=== PATIENT | female | born 1955 | race Caucasian/White ===

== ENCOUNTER → 2018-03-09 | Outpatient (CLI) | payer OTHER | END | disposition home or self-care (01) | LOC: RAH 14:35 | PROVIDERS: ATTEND Internal Medicine | DX: G31.9 Degenerative disease of nervous system, unspecified (principal); H53.9 Unspecified visual disturbance | CPT/HCPCS: 70551 ==

== ENCOUNTER → 2022-03-20 | Outpatient (CLI) | payer MEDICARE, OTHER | END | disposition home or self-care (01) | LOC: RAH 14:48 | PROVIDERS: ATTEND Student in an Organized Health Care Education/Training Program | DX: S83.231A Complex tear of medial meniscus, current injury, right knee, initial encounter (principal); X58.XXXA Exposure to other specified factors, initial encounter; Y93.89 Activity, other specified; Y92.89 Other specified places as the place of occurrence of the external cause; Y99.8 Other external cause status; M25.461 Effusion, right knee | CPT/HCPCS: 73721 ==

== ENCOUNTER → 2022-05-22 | Outpatient (CLI) | payer MEDICARE, OTHER | END | disposition home or self-care (01) | LOC: RAH 09:50 | PROVIDERS: ATTEND Internal Medicine | DX: K44.9 Diaphragmatic hernia without obstruction or gangrene (principal); R12 Heartburn; R13.10 Dysphagia, unspecified | CPT/HCPCS: 74240 ==

== ENCOUNTER → 2023-09-07 | Outpatient (CLI) | payer MEDICARE, OTHER | END | disposition home or self-care (01) | LOC: SHCH 12:55 | PROVIDERS: ATTEND Internal Medicine Cardiovascular Disease | DX: R00.2 Palpitations (principal); R42 Dizziness and giddiness | CPT/HCPCS: 93306 ==

== ENCOUNTER → 2023-09-10 | Outpatient (CLI) | payer OTHER | END | disposition home or self-care (01) | LOC: RAH 13:55 | PROVIDERS: ATTEND Internal Medicine Cardiovascular Disease | DX: Z13.6 Encounter for screening for cardiovascular disorders (principal) | CPT/HCPCS: 75571 ==

== ENCOUNTER → 2023-12-09 | Outpatient (CLI) | payer MEDICARE, OTHER | END | disposition home or self-care (01) | LOC: RAH 10:06 | PROVIDERS: ATTEND Internal Medicine | DX: N28.1 Cyst of kidney, acquired (principal); N20.0 Calculus of kidney; I70.90 Unspecified atherosclerosis; R14.0 Abdominal distension (gaseous); R19.5 Other fecal abnormalities; Z90.49 Acquired absence of other specified parts of digestive tract | CPT/HCPCS: 76700 ==